=== PATIENT | female | born 1970 | race Caucasian/White ===

== ENCOUNTER 2018-07-09 01:55 | Inpatient (IN) | payer OTHER ==
[2018-07-09] MEDS ORDERED: ACETAMINOPHEN 325 MG TAB PO (03:00)
[2018-07-09] MEDS ORDERED: DOCUSATE SODIUM 100 MG CAP PO (03:00)
[2018-07-09] MEDS ORDERED: BISACODYL (EC) 5 MG TAB PO (03:00)
[2018-07-09] MEDS ORDERED: NACL 0.9% 3 ML SYG IV (03:00)
[2018-07-09] MEDS ORDERED: NITROGLYCERIN (SL) 0.4 MG TAB SL (03:00)
[2018-07-09] MEDS ORDERED: ONDANSETRON 4 MG INJ IV (03:00)
[2018-07-09] MEDS: IBUPROFEN 400 MG TAB PO (03:16)
[2018-07-09] MEDS ORDERED: LISINOPRIL 20 MG TAB (04:27)
[2018-07-09] MEDS: LISINOPRIL 20 MG TAB PO ×2 (04:29→05:00)
[2018-07-09] MEDS: HYDROCHLOROTHIAZIDE 25 MG TAB PO ×2 (05:00→05:29)
[2018-07-09 06:14] LABS: ADD MAN DIFF? NO
[2018-07-09 06:25] LABS: WHITE BLOOD COUNT 7.4 10^3/ul (4.8-10.8)
[2018-07-09 06:25] LABS: BASOPHILS % 0.4 % (0.0-2.0); EOSINOPHILS % 0.1 % (0.0-7.0); HEMATOCRIT 36.5 % (37.0-47.0); HEMOGLOBIN 11.9 g/dl (12.0-16.0); LYMPHOCYTES # 1.8 10^3/ul (0.8-2.9); MEAN CORPUSCULAR HEMOGLOBIN 26.7 pg (29.0-33.0); MEAN CORPUSCULAR HGB CONC 32.6 g/dl (32.0-37.0); MEAN PLATELET VOLUME 9.8 fl (7.4-10.4); MONOCYTE # 0.5 10^3/ul (0.3-0.9); MONOCYTES % 6.6 % (0.0-11.0); NEUTROPHILS % 68.5 % (39.0-77.0); PLATELET COUNT 277 10^3/UL (140-415); RED BLOOD COUNT 4.45 10^6/ul (4.20-5.40)
[2018-07-09 06:40] LABS: HEMOGLOBIN A1C 5.1 % (0-5.9)
[2018-07-09 06:55] LABS: ALANINE AMINOTRANSFERASE 19 IU/L (13-69); ALBUMIN 3.9 g/dl (3.3-4.9); ALBUMIN/GLOBULIN RATIO 1.08; ALKALINE PHOSPHATASE 49 IU/L (42-121); ANION GAP 10 (5-13); ASPARTATE AMINO TRANSFERASE 23 IU/L (15-46); BILIRUBIN,INDIRECT 0.2 mg/dl (0-1.1); BILIRUBIN,TOTAL 0.2 mg/dl (0.2-1.3); BLOOD UREA NITROGEN 13 mg/dl (7-20); CALCIUM 9.2 mg/dl (8.4-10.2); CARBON DIOXIDE 28 mmol/L (21-31); CHLORIDE 101 mmol/L (97-110); CHOL/HDL RATIO 3.3 RATIO; CHOLESTEROL 187 mg/dl (100-200); CREATINE KINASE 71 IU/L (23-200); CREATININE 0.73 mg/dl (0.44-1.00); Estimated GFR > 60 mL/min (>60); GLUCOSE 109 mg/dl (70-220); HDL CHOLESTEROL 56 mg/dl (37-92); LDL CHOLESTEROL,CALCULATED 121 mg/dl; POTASSIUM 3.6 mmol/L (3.5-5.1); SODIUM 139 mmol/L (135-144); TOTAL PROTEIN 7.5 g/dl (6.1-8.1); TRIGLYCERIDES 52 mg/dl (0-149)
[2018-07-09 07:05] LABS: CK INDEX 0.6; CK-MB 0.44 ng/ml (0.0-2.4); TROPONIN-I < 0.012 ng/ml (0.000-0.120)
[2018-07-09] MEDS ORDERED: HYDROCHLOROTHIAZIDE 25 MG TAB PO (09:00)
[2018-07-09 10:15] LABS: CREATINE KINASE 68 IU/L (23-200)
[2018-07-09 10:26] LABS: CK INDEX 0.6; TROPONIN-I < 0.012 ng/ml (0.000-0.120)
== END 2018-07-09 17:46 | disposition home or self-care (01) | DRG 305 ==
LOC: TEL 01:55
DX: I10 Essential (primary) hypertension (principal); Z68.42 Body mass index [BMI] 45.0-49.9, adult; G47.9 Sleep disorder, unspecified; E66.01 Morbid (severe) obesity due to excess calories; J45.909 Unspecified asthma, uncomplicated
CPT/HCPCS: 80053; 80061; 82550; 82553; 83036; 83735; 84443; 84484; 85025; 93306